=== PATIENT | male | born 1930 | race Caucasian/White ===

== ENCOUNTER → 2016-05-14 | Outpatient (CLI) | payer MEDICARE, OTHER ==
[~2016-05-14] MED LIST: ALFU10TA2 PO; ASPI81 PO; ASPI81CH7 CHEW; COQ1200C PO; CREO3000 PO; DIAB1.25 PO; DOCU100C PO; FERR1TAB58 PO; FINA5TAB2 PO; FISH1000 PO; FISHCAP4 PO; FURO20TA PO; GLUCTAB PO; ISOS30TA3 PO; LANTUS2P SQ; METATAB; METF1000 PO; METO25TA3 PO; NOVORP2 SQ; PERC7.5T3 PO; PRIN5TAB PO; PROS5TAB2 PO; RANI150 PO; RANI300T PO; SIMV20 PO; SIMV20TA PO; TAB-TAB PO; TERA5CAP34 PO; VITA10003 PO
[2016-05-14 09:51] LABS: ALKALINE PHOSPHATASE 96 U/L (45-117); ALT (GPT) 23 U/L (12-78); ANION GAP 9 MEQ/L (5-15); AST (GOT) 20 U/L (15-37); BICARBONATE 36.8 MEQ/L (21.0-32.0); BLOOD UREA NITROGEN 27 MG/DL (7-18); CHLORIDE 92 MEQ/L (98-107); GLOMERULAR FILTRATION RATE 63 ML/MIN (>89); GLUCOSE,FASTING 201 MG/DL (74-99); HDL CHOLESTEROL 55.3 MG/DL (40.0-60.0); LDL CHOLESTEROL 43 MG/DL (0-99); POTASSIUM 3.4 MEQ/L (3.5-5.1); SODIUM (NA) 138 MEQ/L (136-145); TOTAL BILIRUBIN ADULT 0.9 MG/DL (0.2-1.0)
== END ==
LOC: PLAB 07:39
PROVIDERS: ATTEND Internal Medicine Interventional Cardiology
DX: I25.10 Atherosclerotic heart disease of native coronary artery without angina pectoris (principal); R06.09 Other forms of dyspnea; R60.0 Localized edema; I10 Essential (primary) hypertension; I05.9 Rheumatic mitral valve disease, unspecified; E78.2 Mixed hyperlipidemia; I47.1 Supraventricular tachycardia; I45.89 Other specified conduction disorders; I38 Endocarditis, valve unspecified; I49.3 Ventricular premature depolarization; Z68.26 Body mass index [BMI] 26.0-26.9, adult
CPT/HCPCS: 36415; 80053; 80061; 83880; 84439; 84443; 85379

== ENCOUNTER → 2016-08-02 | Outpatient (CLI) | payer MEDICARE, OTHER ==
[2016-08-02 15:57] LABS: POTASSIUM 4.1 MEQ/L (3.5-5.1)
== END ==
LOC: PLAB 12:08
PROVIDERS: ATTEND Internal Medicine Interventional Cardiology
DX: I25.10 Atherosclerotic heart disease of native coronary artery without angina pectoris (principal); R06.09 Other forms of dyspnea; R60.0 Localized edema; I10 Essential (primary) hypertension; I05.9 Rheumatic mitral valve disease, unspecified; E78.2 Mixed hyperlipidemia; I47.1 Supraventricular tachycardia; I45.89 Other specified conduction disorders; I38 Endocarditis, valve unspecified; I49.3 Ventricular premature depolarization
CPT/HCPCS: 36415; 82565; 84132; 84295; 84520

== ENCOUNTER → 2016-08-26 | Outpatient (CLI) | payer MEDICARE, OTHER | LOC: PLAB 08:41 | PROVIDERS: ATTEND Family Medicine | DX: R79.89 Other specified abnormal findings of blood chemistry (principal) | CPT/HCPCS: 36415; 85379 ==

== ENCOUNTER 2016-09-23 01:51 | Inpatient (IN) | payer MEDICARE, OTHER ==
[~2016-09-23] VITALS: Ht 170.2 cm; Wt 79.9 kg
[2016-09-23] VITALS (16 sets, daily range): BP systolic 113–186; BP diastolic 63–86; PULSE 52–74; RESP 16–19; TEMP 96.7–98.1; O2SAT 88–97
[~2016-09-23 01:51] MED LIST changes: -ALFU10TA2 PO; -ASPI81CH7 CHEW; -COQ1200C PO; -CREO3000 PO; -DOCU100C PO; -FERR1TAB58 PO; -FINA5TAB2 PO; -FISH1000 PO; -FURO20TA PO; -ISOS30TA3 PO; -LANTUS2P SQ; -METF1000 PO; -METO25TA3 PO; -NOVORP2 SQ; -RANI300T PO; -SIMV20TA PO; -VITA10003 PO
--- NOTE | 2016-09-23 01:58 | PD ---
HPI Chief Complaint: Abd pain Time Seen by Provider: 02:10 Travel History International Travel<30 days: No Contact w/Intl Traveler<30days: No History of Present Illness HPI 86-year-old male arrives to the ER complaining of about 6 hours of epigastric abdominal pain. He felt nausea and the urge to vomit however did not. He reports passing trace flatus. Symptoms began after he ate tilapia, [facility]ashed [facility] Symptoms have been constant. He states severity is 7/10. There is a pressure-like quality. He took Gavascon which did not help. His had a different meal tonight. No fever. PFSH Past Medical History Arthritis: Yes Heart Rhythm Problems: Yes (PVC'S) Cancer: No Cardiac Catheterization: Yes () Cardiovascular Problems: No High Cholesterol: Yes Diabetes: Yes Diminished Hearing: No Diverticulitis: Yes Endocrine: No GERD: Yes Gout: Yes Genitourinary: Yes Hiatal Hernia: Yes Herniated Disk: Yes (RECENT DIAGNOSIS (STS POSSIBLE) ) Hypertension: Yes Inguinal Hernia: Yes Musculoskeletal: Yes Neurologic: Yes (BELLS PALSY) Psychiatric: No Reproductive: Yes (BPH) Respiratory: No Pneumonia: Yes Triglycerides - High: Yes Past Surgical History Abdominal Surgery: Yes (HERNIA REPAIR 1997) Joint Replacement: Yes (LEFT GREAT TOE JOINT) Tonsillectomy: Yes Other Surgery: Yes (INGUINAL HERNIA L AND R REPAIR) Social History Alcohol Use: Yes (RARELY) Tobacco Use: No (QUIT AGE 44) Substance Use: No Allergies-Medications (Allergen,Severity, Reaction): Coded Allergies: Penicillin (Verified Allergy, Intermediate, 01/22/13) HIVES Uncoded Allergies: MYCINS (Adverse Reaction, Mild, 01/22/13) PT STS NOT ALLERGIC TO MYCINS, STS HE HAD A Z ANDREA RECENTLY AND HAD NO REACTION Reported Meds & Prescriptions Reported Meds & Active Scripts Active Reported Lantus Inj (Insulin Glargine) 1,000 Unit/10 Ml Vial 20 Units SQ AC BREAKFAST Novolin R Inj (Insulin Human Regular) 1,000 Unit/10 Ml Vial 4-6 Units SQ TIDAC IMPORTANT TO EAT A MEAL WITHIN 30-60 MINUTES OF DOSING Creon (Pancrelipase) 3,000-9,500-15,000 Units Cap 1 Cap PO TIDPC Finasteride 5 Mg Tab 5 Mg PO DAILY Do not crush. Docusate Sodium 100 Mg Cap 100 Mg PO BID Alfuzosin ER 24 HR 10 Mg Tab 10 Mg PO DAILY Fish Oil ([place]-3 Fatty Acids) 1,000 Mg Cap 1 Cap PO DAILY Iron (Ferrous Sulfate) 50 Mg Tab 50 Mg PO DAILY Vitamin D-3 (Cholecalciferol) 1,000 Unit Tab 1,000 Units PO DAILY Simvastatin 20 Mg Tab 20 Mg PO DAILY Furosemide 20 Mg Tab 10 Mg PO DAILY Isosorbide Mononitrate ER (Isosorbide Mononitrate) 30 Mg Mary 30 Mg PO DAILY Metoprolol Tartrate 25 Mg Tab 12.5 Mg PO BID Ranitidine (Ranitidine HCl) 300 Mg Tab 300 Mg PO BID Coq10 (Coenzyme Q10 (Ubidecarenone)) 200 Mg Cap 1 Cap PO DAILY Aspirin Children's (Aspirin) 81 Mg Chew 81 Mg CHEW DAILY Metformin (Metformin HCl) 1,000 Mg Tab 1,000 Mg PO BIDPC With meals Review of Systems Except as stated in HPI: all other systems reviewed are Neg General / Constitutional: No: Fever Gastrointestinal: Positive: Abdominal Pain Physical Exam Narrative GENERAL: 86-year-old male pleasant well-nourished well-developed SKIN: Focused skin assessment warm/dry. HEAD: Atraumatic. Normocephalic. EYES: Pupils equal and round. No scleral icterus. No injection or drainage. ENT: No nasal bleeding or discharge. Mucous membranes pink and moist. NECK: Trachea midline. No JVD. CARDIOVASCULAR: Regular rate and rhythm. No murmur appreciated. RESPIRATORY: No accessory muscle use. Clear to auscultation. Breath sounds equal bilaterally. GASTROINTESTINAL: Tenderness to palpation epigastrium. Abdomen soft otherwise. MUSCULOSKELETAL: No obvious deformities. No clubbing. No cyanosis. No edema. NEUROLOGICAL: Awake and alert. No obvious cranial nerve deficits. Motor grossly within normal limits. Normal speech. PSYCHIATRIC: Appropriate mood and affect; insight and judgment normal. Data Data Last Documented VS Vital Signs Date Time Temp Pulse Resp B/P Pulse Ox O2 Delivery O2 Flow Rate FiO2 09/23/16 05:05 64 16 159/73 97 Nasal Cannula 2 09/23/16 01:59 98.1 Vital signs reviewed Orders Complete Blood Count With Diff (09/23/16 02:10) Comprehensive Metabolic Panel (09/23/16 02:10) Lipase (09/23/16 02:10) Lactic Acid (09/23/16 02:10) Ct Abd/Pel W Iv Contrast(Rout) (09/23/16 02:10) Iv Access Insert/Monitor (09/23/16 02:10) Ecg Monitoring (09/23/16 02:10) Oximetry (09/23/16 02:10) Ondansetron Inj (Zofran Inj) (09/23/16 02:15) Sodium Chloride 0.9% Flush (Ns Flush) (09/23/16 02:15) Dicyclomine Inj (Bentyl Inj) (09/23/16 02:15) Morphine Inj (Morphine Inj) (09/23/16 02:15) Al-Mag Hy-Si 40-40-4 Mg/Ml Liq (Mag-Al P (09/23/16 02:15) Lidocaine 2% Viscous (Xylocaine 2% Visco (09/23/16 02:15) Oral Contrast - Adult (09/23/16 02:14) Diatrizoate Liq ( Gastroview Liq) (09/23/16 02:57) Sodium Chlorid 0.9% 500 Ml Inj (Ns 500 M (09/23/16 03:30) Iohexol 350 Inj (Omnipaque 350 Inj) (09/23/16 04:16) Admit Order (Ed Use Only) (09/23/16 06:03) Labs Laboratory Tests Test 09/23/16 02:20 White Blood Count 14.6 TH/MM3 Red Blood Count 4.38 MIL/MM3 Hemoglobin 12.7 GM/DL Hematocrit 39.2 % Mean Corpuscular Volume 89.3 FL Mean Corpuscular Hemoglobin 29.0 PG Mean Corpuscular Hemoglobin 32.4 % Concent Red Cell Distribution Width 15.4 % Platelet Count 268 TH/MM3 Mean Platelet Volume 9.2 FL Neutrophils (%) (Auto) 81.0 % Lymphocytes (%) (Auto) 12.2 % Monocytes (%) (Auto) 6.0 % Eosinophils (%) (Auto) 0.3 % Basophils (%) (Auto) 0.5 % Neutrophils # (Auto) 11.9 TH/MM3 Lymphocytes # (Auto) 1.8 TH/MM3 Monocytes # (Auto) 0.9 TH/MM3 Eosinophils # (Auto) 0.0 TH/MM3 Basophils # (Auto) 0.1 TH/MM3 CBC Comment DIFF FINAL Differential Comment Sodium Level 138 MEQ/L Potassium Level 3.9 MEQ/L Chloride Level 100 MEQ/L Carbon Dioxide Level 31.5 MEQ/L Anion Gap 7 MEQ/L Blood Urea Nitrogen 26 MG/DL Creatinine 1.10 MG/DL Estimat Glomerular Filtration 63 ML/MIN Rate Random Glucose 275 MG/DL Lactic Acid Level 1.9 mmol/L Calcium Level 8.8 MG/DL Total Bilirubin 0.3 MG/DL Aspartate Amino Transf 17 U/L (AST/SGOT) Alanine Aminotransferase 20 U/L (ALT/SGPT) Alkaline Phosphatase 80 U/L Total Protein 7.1 GM/DL Albumin 3.5 GM/DL Lipase 664 U/L [facility] Medical Decision Making Medical Screen Exam Complete: Yes Emergency Medical Condition: Yes Medical Record Reviewed: Yes Differential Diagnosis Constipation, Gastritis, Acute Cholecystitis, Biliary Colic, Pancreatitis, FUENTES , Hepatitis, Bowel Obstruction, Cystitis, Mesenteric Ischemia, AAA, Appendicitis , Renal Stone/Hydronephrosis, GERD, perforated viscous Narrative Course CBC & BMP Diagram 09/23/16 02:20 Lactic acid 1.9 LFTs normal Lipase 664 0520: pt resting comfortably, subjective improvement reported, minimal TTP epigastrium, soft Last 24 hours Impressions Abdomen/Pelvis CT 09/23/16 0210 Signed Impressions: Service Date/Time: , September 23, 2016 04:07 - CONCLUSION: 1. New large complex low attenuation mass in the right upper abdomen. The differential diagnosis includes pancreatic carcinoma. A GI tumor could potentially have this appearance. Endoscopy may be helpful for further evaluation. 2. 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 3. Bilateral renal cysts. Stevenson Regan MD Pt to be admitted for management of pancreatitis and for endoscopic evaluation of mass in right upper abdomen. Three weeks, subsequently reported by the patient as one month, prior pt was evaluated by an oncologist, Dr Nik Shipley. Results of the evaluation performed at that time were reported to the patient and as a "Clean bill of health" and, it is reported to me by the , the evaluation included imaging of the abdomen/pelvis. Both patient and are perplexed with results of today's work up being in apparent contradiction with those of the oncologist' s. Both request the oncologist assessment be obtained most expeditiously upon his office's opening hour at 09:00 and have signed consent forms already. Case was discussed w Wander Farfan. Admit to Dr Pelaez. A consultation to GI has been placed. Pt has requested a medication for his reflux symptoms noted at 610AM and protonix was ordered. Diagnosis Primary Impression: Pancreatitis Qualified Code: K85.90 - Acute pancreatitis, unspecified complication status, unspecified pancreatitis type Additional Impression: Mass of abdomen Qualified Code: R19.06 - Epigastric mass Admitting Information Admitting Physician Requests: Rashaun Hankins MD September 23, 2016 01:58
[2016-09-23] MEDS ORDERED: DICYCLOMINE HCL 20 MG/2 ML VIAL IM ONE (02:15)
[2016-09-23] MEDS ORDERED: LIDOCAINE VISCOUS 2% SOLN 15 ML UDC PO ONE (02:15)
[2016-09-23] MEDS ORDERED: MORPHINE SULFATE 8 MG/ML INJ IV PUSH ONE (02:15)
[2016-09-23] MEDS ORDERED: ALUMINUM/MAGNESIUM/SIMETH 30 ML CUP PO ONE (02:15)
[2016-09-23] MEDS ORDERED: ONDANSETRON HCL 4 MG/2 ML VIAL IVP ONE (02:15)
[2016-09-23 02:31] LABS: AUTOMATED NEUTROPHIL # 11.9 TH/MM3 (1.8-7.7); BASOPHIL # 0.1 TH/MM3 (0-0.2); BASOPHIL % 0.5 % (0.0-2.0); EOSINOPHIL % 0.3 % (0.0-4.0); HEMATOCRIT 39.2 % (39.0-51.0); HEMO FLAGS DIFF FINAL; LYMPH % 12.2 % (9.0-44.0); LYMPHOCYTE # 1.8 TH/MM3 (1.0-4.8); MEAN CELL VOLUME 89.3 FL (80.0-100.0); MEAN CORPUSCULAR HGB CONC 32.4 % (32.0-36.0); PLATELET COUNT 268 TH/MM3 (150-450); RED BLOOD COUNT 4.38 MIL/MM3 (4.50-5.90); RED CELL DISTRIBUTION WIDTH 15.4 % (11.6-17.2); WHITE BLOOD COUNT 14.6 TH/MM3 (4.0-11.0)
[2016-09-23 02:37] LABS: CHLORIDE 100 MEQ/L (98-107); POTASSIUM 3.9 MEQ/L (3.5-5.1); SODIUM (NA) 138 MEQ/L (136-145)
[2016-09-23] MEDS: SODIUM CHLORIDE 0.9% FLUSH 10 ML FLUSH IV FLUSH PRN ×2 (02:38→06:22)
[2016-09-23 02:41] LABS: ANION GAP 7 MEQ/L (5-15); BICARBONATE 31.5 MEQ/L (21.0-32.0); BLOOD UREA NITROGEN 26 MG/DL (7-18)
[2016-09-23 02:44] LABS: ALT (GPT) 20 U/L (12-78); AST (GOT) 17 U/L (15-37); GLOMERULAR FILTRATION RATE 63 ML/MIN (>89)
[2016-09-23 02:45] LABS: TOTAL BILIRUBIN ADULT 0.3 MG/DL (0.2-1.0)
[2016-09-23 02:47] LABS: ALKALINE PHOSPHATASE 80 U/L (45-117)
[2016-09-23] MEDS ORDERED: DIATRIZOATE MEGLUM/DIATRIZOATE SOD 9 ML CUP ONE (02:57)
[2016-09-23] MEDS ORDERED: METF1000 PO (03:26)
[2016-09-23] MEDS ORDERED: SIMV20TA PO (03:26)
[2016-09-23] MEDS ORDERED: ALFU10TA2 PO (03:26)
[2016-09-23] MEDS ORDERED: FURO20TA PO (03:26)
[2016-09-23] MEDS ORDERED: FINA5TAB2 PO (03:26)
[2016-09-23] MEDS ORDERED: RANI300T PO (03:26)
[2016-09-23] MEDS ORDERED: ASPI81CH7 CHEW (03:26)
[2016-09-23] MEDS ORDERED: FERR1TAB58 PO (03:26)
[2016-09-23] MEDS ORDERED: METO25TA3 PO (03:26)
[2016-09-23] MEDS ORDERED: VITA10003 PO (03:26)
[2016-09-23] MEDS ORDERED: DOCU100C PO (03:26)
[2016-09-23] MEDS ORDERED: ISOS30TA3 PO (03:26)
[2016-09-23] MEDS ORDERED: FISH1000 PO (03:26)
[2016-09-23] MEDS ORDERED: COQ1200C PO (03:26)
[2016-09-23] MEDS ORDERED: CREO3000 PO (03:29)
[2016-09-23] MEDS ORDERED: LANTUS2P SQ (03:29)
[2016-09-23] MEDS ORDERED: NOVORP2 SQ (03:29)
[2016-09-23] MEDS ORDERED: SODIUM CHLORID 0.9% 500 ML INJ 500 ML IV ONE (03:30)
[2016-09-23] MEDS ORDERED: IOHEXOL 350 MG/ML 10 ML VIAL (for RAD DIAG) IV ONE (04:16)
--- NOTE | 2016-09-23 05:31 | RADHPO ---
EXAM DATE/TIME: 09/23/2016 04:07 [place] COMPARISON: CT ABDOMEN & PELVIS W CONTRAST, November 02, 2011, 20:37. INDICATIONS : Abdominal pain and reflux following a meal. History of abnormal pancreas with cystic structure seen o n prior CT. IV CONTRAST: 100 cc Omnipaque 350 (iohexol) IV ORAL CONTRAST: Prescribed oral contrast ingested. RADIATION DOSE: 16.27 CTDIvol (mGy) MEDICAL HISTORY : Hernia, hiatal. Hernia, inguinal. Diverticulitis. BPH. Diabetes. Hypertension. SURGICAL HISTORY : Inguinal hernia repair. ENCOUNTER: Initial ACUITY: 1 day PAIN SCALE: 5/10 LOCATION: abdomen TECHNIQUE: Volumetric scanning of the abdomen and pelvis was performed. Using automated exposure control and ad justment of the mA and/or kV according to patient size, radiation dose was kept as low as reasonably achievable to obtain optimal diagnostic quality images. FINDINGS: LOWER LUNGS: The visualized lower lungs are clear except for mild scarring. LIVER: Homogeneous density without lesion. There is no dilation of the biliary tree. No calcified gallston es. SPLEEN: Normal size without lesion. PANCREAS: Multiple stable benign appearing cystic structures are again noted in the pancreas. There is a new la rge low attenuation mass noted along the posterior antrum of the stomach and left side of the duodenu m measuring up to 3.8 x 3.7 cm in diameter. The mass is also contiguous with the upper pancreatic hea d. There is a central low attenuation rounded mass like area with apparent faint thin rim surrounded by a second area of low attenuation. Centrally this measures approximately 45 Hounsfield units in den sity and appears to displace and narrow the distal stomach and duodenum. KIDNEYS: Normal in size and shape. There is no solid mass, stone or hydronephrosis. There are bilateral simpl e cysts again noted. ADRENAL GLANDS: Within normal limits. VASCULAR: There is no aortic aneurysm. BOWEL/MESENTERY: The stomach, small bowel, and colon demonstrate no other acute abnormality. There is no free intrape ritoneal air or fluid. Scattered diverticuli are present. ABDOMINAL WALL: Within normal limits. RETROPERITONEUM: There is no lymphadenopathy. BLADDER: No wall thickening or mass. REPRODUCTIVE: Within normal limits. INGUINAL: There is no lymphadenopathy or hernia. MUSCULOSKELETAL: Within normal limits for patient age. CONCLUSION: 1. New large complex low attenuation mass in the right upper abdomen. The differential diagnosis incl udes pancreatic carcinoma. A GI tumor could potentially have this appearance. Endoscopy may be helpfu l for further evaluation. 2. 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 3. Bilateral renal cysts. Stevenson Regan MD on September 23, 2016 at 5:21 Board Certified Radiologist. This report was verified electronically.
[2016-09-23] MEDS ORDERED: PANTOPRAZOLE SODIUM 40 MG VIAL IVP ONE (06:15)
[2016-09-23] MEDS ORDERED: ONDANSETRON HCL 4 MG/2 ML VIAL IV PRN (07:15)
[2016-09-23] MEDS ORDERED: SODIUM CHLORIDE 0.9% FLUSH 10 ML FLUSH IV FLUSH PRN (07:15)
[2016-09-23] MEDS ORDERED: MORPHINE SULFATE 8 MG/ML INJ IV PUSH PRN (07:15)
[2016-09-23] MEDS ORDERED: FINASTERIDE 5 MG TAB PO SCH ×2 (09:00→21:00)
[2016-09-23] MEDS ORDERED: NON-FORMULARY DRUG (Coenzyme Q10 (Ubidecarenone) (Coq10) 1 CAP) PO SCH (09:00)
[2016-09-23] MEDS ORDERED: TAMSULOSIN HCL 0.4 MG CAP PO SCH ×2 (09:00→21:00)
[2016-09-23] MEDS ORDERED: PRAVASTATIN SOD 40 MG TAB PO SCH ×2 (09:00→21:00)
[2016-09-23] MEDS ORDERED: NON-FORMULARY DRUG (Omega-3 Fatty Acids (Fish Oil) 1 CAP) PO SCH (09:00)
[2016-09-23] MEDS ORDERED: PILL SPLITTER OTHER PRN (09:00)
[2016-09-23] MEDS: METFORMIN HOLD POST IV CONTRAST SCH (09:00)
[2016-09-23] MEDS: SODIUM CHLOR 0.9% 1000 ML INJ 1,000 ML IV SCH ×3 (09:01→23:07)
[2016-09-23] MEDS: HEPARIN SODIUM - SQ 10,000 UNITS/ML VIAL SQ SCH ×2 (09:01→21:51)
[2016-09-23] MEDS: SODIUM CHLORIDE 0.9% FLUSH 10 ML FLUSH IV FLUSH SCH ×2 (09:01→21:48)
--- NOTE | 2016-09-23 09:18 | MH ---
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 He reports passing flatus. His symptoms began after he ate Tilapia, mashed potatoes and salad bar at [facility] [employer]. The symptoms have been constant. He states this is about 10. There is a pressure-like quality. He took Gaviscon which did not help. His had a different meal last night. He denies any fever or chills. Denies any blood in the stool. Denies any black stool. Denies any chest pain or shortness of breath. Denies any cough, congestion, bronchitis symptoms. He denies any urinary tract infection symptoms. Other than that, nothing significant. PAST MEDICAL AND SURGICAL HISTORY As dictated above. SOCIAL HISTORY He quit smoking at age 44. He rarely drinks. Denies any drug abuse. Lives at home with his . He is retired from retail used equipment sales representative. FAMILY HISTORY Significant for a brother who of bladder cancer and another brother of esophageal cancer. ALLERGIES PENICILLIN CAUSES HIVES, MYCIN. MEDICATIONS Include: 1. Lantus 20 units subcutaneous a.c/breakfast 2. Novolin R according to sliding scale 3. Colace 100 mg p.o. daily 4. Creon 3000/9500/15,000 units capsule p.o. t.i.d. 5. Finasteride 5 mg p.o. daily 6. Alfuzosin ER 24 mg 12 mg daily 7. Fish oil one capsule daily 8. Iron 50 mg p.o. daily 9. Vitamin D3 1000 units p.o. daily 10. Simvastatin 20 mg p.o. daily 11. Furosemide 20 mg p.o. daily 12. Isosorbide mononitrate 30 mg p.o. daily 13. Metoprolol tartrate 25 mg 1/2 tablet twice a day 14. Ranitidine 300 mg twice a day 15. CO-Q10 200 mg p.o. daily 16. Aspirin 81 mg p.o. daily 17. Metformin 1000 mg twice a day REVIEW OF SYSTEMS Positive for abdominal pain, nausea feeling weak and tired. All other review of systems are negative. PHYSICAL EXAMINATION This is an 86-year-old male sitting on the bed not in acute distress. VITAL SIGNS: Temperature 98.1, heart rate is 61, respirations 16, blood pressure 131/63, O2 saturation 98% two liters nasal cannula. HEENT: Normocephalic, atraumatic. EOMI. PERRL. Oral mucosa moist. NECK: Supple. No visible thyromegaly or neck mass. Trachea central. CARDIOVASCULAR: Regular rate and rhythm. Respirations clear to auscultation bilaterally. ABDOMEN: Soft, tender at the epigastric area. Deep palpation not done. Bowel sounds audible. EXTREMITIES: No cyanosis or clubbing. Full range of motion of all extremities. NEUROLOGIC: Awake, alert, and oriented x4. Has a right-sided Engel's palsy. PSYCH: The patient is cooperative. Mood and affect is normal. LABORATORY DATA Include CBC showed WBC count 14.6 high, hemoglobin 12.7 low, hematocrit 39.2 normal. Neutrophil percentage 81.0 high. BMP totally unremarkable except for BUN 26 high, GFR 63 low, blood glucose random 275, lipase 664. CT abdomen and pelvis was done shows new large complex low attenuation mass in the right upper abdomen. The differential diagnosis included pancreatic carcinoma. A GI tumor could potentially have this appearance. Funduscopy may be helpful for further evaluation. Multiple low-attenuation cystic structure again noted in the spleen which appear fairly stable, bilateral renal cysts. ASSESSMENT/PLAN 1. This is an 86-year male who came to the ER diagnosed with abdominal pain most likely secondary to a cancer mass. The patient also high lipase. The patient is on Morphine for pain. GI consulted. I will consult oncology. Further recommendation per sales enablement consultant. 2. Diabetes mellitus. The patient started on a clear liquid diet. NovoLog low-dose sliding scale. Check blood sugar and H&H. 3. History of coronary artery disease. Continue home medication. 4. History of hyperlipidemia. Continue home medication. 5. History of vitamin D deficiency. Continue home medications. 6. Iron deficiency. Continue with iron supplement. 7. Constipation. Continue the home medication. 8. Nausea and vomiting. The patient is on Zofran. 9. DVT prophylaxis, heparin 5000 units subcutaneous twice a day. 10. GI prophylaxis Protonix 40 mg p.o. daily. 11. We are going to manage the patient on a daily basis and make recommendations on a daily basis. Sandip Tan MD EA/ZAHIDA /8:36 AM /8:49 AM
[2016-09-23] MEDS ORDERED: [UNRECOGNIZED DRUG - OTHER] PO SCH (09:30)
[2016-09-23] MEDS: CHOLECALCIFEROL (VIT D3) 1000 UNIT TAB PO SCH (11:24)
[2016-09-23] MEDS: FUROSEMIDE 20 MG TAB PO SCH (11:24)
[2016-09-23] MEDS: FAMOTIDINE 20 MG TAB PO SCH ×2 (11:24→21:49)
[2016-09-23] MEDS: METOPROLOL TARTRATE 25 MG TAB PO SCH ×2 (11:25→21:50)
[2016-09-23] MEDS: DOCUSATE SODIUM 100 MG CAP PO SCH ×2 (11:25→21:50)
[2016-09-23] MEDS: ASPIRIN 81 MG CHEW TAB CHEW SCH (11:25)
[2016-09-23] MEDS: FERROUS SULFATE 325 MG (65 MG ELEMENTAL IRON) TAB PO SCH (11:26)
[2016-09-23] MEDS: ISOSORBIDE MONONITRATE 30 MG TAB PO SCH (11:41)
--- NOTE | 2016-09-23 19:46 | MB ---
cc: FAIZAN CRONIN MD DATE OF CONSULTATION 09/23/[address] Pelaez REASON FOR CONSULTATION Oncology consulted to render opinion regarding patient with pancreatic cancer who presented with abdominal pain and pancreatic mass. 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 She went to [facility] and had distal pancreatectomy with splenectomy in December of 2015. He has been followed by Dr. Shipley. He just completed adjuvant chemotherapy around August of this year. He was doing well. He went to eat at a restaurant yesterday. After that, he developed bloating and pressure sensation in mid epigastrium, more towards the left side. He was nauseated, but he could not throw up. He was very uncomfortable and came to the hospital. CT abdomen and pelvis done showed a new large complex low attenuation mass in the right upper quadrant worrisome for recurrent disease. When I saw him today, he is feeling better. He is no longer nauseated. He denies any abdominal pain. Denies any fever or chills. Denies any chest pressure, palpitations, any shortness of breath or cough. PAST MEDICAL HISTORY 1. Pancreatic cancer. 2. Coronary disease 3. Diabetes mellitus, 4. Hyperlipidemia. 5. Diverticulitis. 6. Gastroesophageal reflux disease. 7. Gout 8. Hiatal hernia 9. Engel's palsy 10. Hypertension. 11. Inguinal hernia 12. Benign prostatic hypertrophy. PAST SURGICAL HISTORY 1. Distal pancreatectomy and splenectomy. 2. Cardiac cath 3. Hernia repair 4. Left toe surgery. 5. Tonsillectomy. FAMILY HISTORY Noncontributory. SOCIAL HISTORY Quit tobacco age 44, has occasional alcohol. ALLERGIES MYCIN PENICILLIN MEDICATIONS Current, 1. Flomax. 2. Proscar. 3. Pravachol. 4. Heparin. 5. Aspirin. 6. Colace. 7. Lasix 8. Imdur 9. Metoprolol 10. Vitamin D3. 11. Ferrous sulfate. 12. Famotidine. REVIEW OF SYSTEMS CONSTITUTIONAL: Denies any fever or chills, night sweat, weight loss. EYES: Denies any blurred vision, double vision. ENT: Denies mouth sores or voice changes. CARDIOVASCULAR: Denies chest pressure, palpitation RESPIRATORY: Denies any shortness of breath or cough. GI: As above. : Denies dysuria, hematuria. MUSCULOSKELETAL: Denies any bone pain, muscle pain HEMATOLOGIC: Negative. ENDOCRINE: Negative DERMATOLOGY: Negative PSYCHIATRIC: Negative. NEUROLOGIC: Negative. PHYSICAL EXAMINATION VITAL SIGNS: Temperature 97.3, blood pressure 115/65, O2 saturation 95% room air. GENERAL: He is alert and oriented x3 in no acute distress. HEENT: Atraumatic, normocephalic. Pupils equal, round and reactive to light. Extraocular movements are intact. No scleral icterus. Oropharynx dry mucosa. No lesion, no thrush. NECK: No thyromegaly. No palpable masses. LYMPHATICS: No palpable cervical, clavicular, axillary or inguinal lymph node CARDIOVASCULAR: Regular S1-S2. No murmur. LUNGS: Clear to auscultation without wheezing or rhonchi. ABDOMEN: Soft. A little pressure in the mid epigastric area but no significant pain. No rebound or rigidity. Positive bowel sounds. EXTREMITIES: No cyanosis, clubbing or edema, no calf tenderness. BACK: No paravertebral tenderness. SKIN: No rash or petechiae. NEUROLOGIC: Nonfocal. LABORATORY DATA Reviewed ASSESSMENT 1. Right upper quadrant mass. He has history of pancreatic cancer status post distal pancreatectomy with splenectomy December 2015. This was done at [facility]. He has been seeing Dr. Shipley and just completed adjuvant chemotherapy around August of this year. He presented with nausea and abdominal pain after eating in a restaurant, onset was quite acute. CT abdomen and pelvis showed a 3.8 x 3.7 cm low-attenuation mass along the posterior antrum of the stomach and the left side of the duodenum. The mass is contiguous with upper pancreatic head. The patient told me he just had an MRI done recently. I reviewed his radiologic studies done at [facility]. I reviewed his MRI and CT scan. He had a CT scan in May 2016 which also noted a similar mass in the same location. MRI August 30 showed 3.3 cm smooth margin cystic lesion upper abdomen between the antrum of the stomach, portal vein, second portion duodenum. This lesion appeared to be stable. 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 I would recommend having the radiologist review his scan and compare it to his previous scan done at outpatient clinic to see if there are any changes. If not, the patient can continue to follow up with Dr. Shipley after discharge. 2. Coronary artery disease. He has no symptoms. 3. Hypertension, stable. 4. Benign prostatic hypertrophy, stable. RECOMMENDATIONS 1. I have reviewed patient his radiologic studies and the abdominal mass appeared to be stable and I think it is a pseudocyst. I recommend having the radiologist compare his current CT scan with his previous CT from May to see if there are any changes. If it is stable, the patient can continue follow up with Dr. Shipley. 2. Check a tumor marker Thank you, Dr. Pelaez, for asking me to see this patient. MD JAMES Trevino/ /6:07 PM /7:20 PM MTDHector
--- NOTE | 2016-09-23 20:41 | PD.CONS ---
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 Shipley and he finished that about a month ago he was at a restaurant yesterday when he experienced the sudden onset of abdominal pain he felt nauseated but he did not vomit on admission through the ER he was noted to have a mass possibly at the level of the head of the pancreas but according to the patient he had a recent MRI with Dr. Shipley and the results are showing that he had the beginnings of a cyst in the head of the pancreas this was dated September 02 patient was also noted to have elevated lipase suggesting that he may have pancreatitis and that this could be a pancreatic pseudocyst regardless at this point the patient is lying comfortable in bed back to his baseline tolerating liquid intake no nausea or vomiting no diarrhea or constipation no fever or chills following his surgery the patient has maintained his appetite and weight PFSH Past Medical History 1. Pancreatic cancer. 2. Coronary disease 3. Diabetes mellitus, 4. Hyperlipidemia. 5. Diverticulitis. 6. Gastroesophageal reflux disease. 7. Gout 8. Hiatal hernia 9. Engel's palsy 10. Hypertension. 11. Inguinal hernia 12. Benign prostatic hypertrophy. Past Surgical History 1. Distal pancreatectomy and splenectomy. 2. Cardiac cath 3. Hernia repair 4. Left toe surgery. 5. Tonsillectomy. Coded Allergies: Penicillin (Verified Allergy, Intermediate, 01/22/13) HIVES Uncoded Allergies: MYCINS (Adverse Reaction, Mild, 01/22/13) PT STS NOT ALLERGIC TO MYCINS, STS HE HAD A Z ANDREA RECENTLY AND HAD NO REACTION Medications 1. Flomax. 2. Proscar. 3. Pravachol. 4. Heparin. 5. Aspirin. 6. Colace. 7. Lasix 8. Imdur 9. Metoprolol 10. Vitamin D3. 11. Ferrous sulfate. 12. Famotidine. Family History Noncontributory Social History No tobacco but occasional alcohol Review of Systems ROS Review of systems Patient denies any headache dizziness blurry vision, denies any chest pain shortness of breath cough fever chills, Denies any palpitations or fatigue denies any polyuria dysuria hematuria, denies any numbness tingling or weakness, denies any skin rash pruritus or jaundice, denies any easy bruising or bleeding tendency, denies any recent change in mood GI Exam Vitals I&O Vital Signs Date Time Temp Pulse Resp B/P Pulse Ox O2 Delivery O2 Flow Rate FiO2 09/23/16 18:13 97 Nasal Cannula 2.00 09/23/16 17:00 97.3 52 18 115/65 95 09/23/16 12:16 96.7 61 19 143/76 94 09/23/16 08:34 97.1 64 18 149/78 97 09/23/16 07:29 61 16 135/63 98 09/23/16 07:15 97 Nasal Cannula 2.00 09/23/16 05:05 64 16 159/73 97 Nasal Cannula 2 09/23/16 04:05 66 16 155/71 96 Nasal Cannula 2 09/23/16 03:43 18 96 Nasal Cannula 2 09/23/16 03:42 18 88 Room Air 09/23/16 03:05 74 18 178/86 94 Room Air 09/23/16 03:00 18 09/23/16 02:05 18 96 Room Air 09/23/16 02:05 63 18 186/84 97 Room Air 09/23/16 02:05 18 09/23/16 01:59 98.1 69 18 161/83 96 I/O 09/22/16 09/22/16 09/22/16 09/23/16 09/23/16 09/23/16 07:00 15:00 23:00 07:00 15:00 23:00 Intake Total 1100 ml 1007 ml Output Total 600 ml Balance 500 ml 1007 ml Intake Oral 600 ml 480 ml IV Total 500 ml 527 ml Output Urine Total 600 ml Imaging Last 48 hours Impressions Abdomen/Pelvis CT 09/23/16 0210 Signed Impressions: Service Date/Time: September 04:07 - CONCLUSION: 1. New large complex low attenuation mass in the right upper abdomen. The differential diagnosis includes pancreatic carcinoma. A GI tumor could potentially have this appearance. Endoscopy may be helpful for further evaluation. 2. 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 3. Bilateral renal cysts. Stevenson Regan MD Laboratory Test 09/23/16 09/23/16 02:20 10:05 White Blood Count 14.6 TH/MM3 Red Blood Count 4.38 MIL/MM3 Hemoglobin 12.7 GM/DL Hematocrit 39.2 % Mean Corpuscular Volume 89.3 FL Mean Corpuscular Hemoglobin 29.0 PG Mean Corpuscular Hemoglobin 32.4 % Concent Red Cell Distribution Width 15.4 % Platelet Count 268 TH/MM3 Mean Platelet Volume 9.2 FL Neutrophils (%) (Auto) 81.0 % Lymphocytes (%) (Auto) 12.2 % Monocytes (%) (Auto) 6.0 % Eosinophils (%) (Auto) 0.3 % Basophils (%) (Auto) 0.5 % Neutrophils # (Auto) 11.9 TH/MM3 Lymphocytes # (Auto) 1.8 TH/MM3 Monocytes # (Auto) 0.9 TH/MM3 Eosinophils # (Auto) 0.0 TH/MM3 Basophils # (Auto) 0.1 TH/MM3 CBC Comment DIFF FINAL Differential Comment Sodium Level 138 MEQ/L Potassium Level 3.9 MEQ/L Chloride Level 100 MEQ/L Carbon Dioxide Level 31.5 MEQ/L Anion Gap 7 MEQ/L Blood Urea Nitrogen 26 MG/DL Creatinine 1.10 MG/DL Estimat Glomerular Filtration 63 ML/MIN Rate Random Glucose 275 MG/DL Lactic Acid Level 1.9 mmol/L Calcium Level 8.8 MG/DL Total Bilirubin 0.3 MG/DL Aspartate Amino Transf 17 U/L (AST/SGOT) Alanine Aminotransferase 20 U/L (ALT/SGPT) Alkaline Phosphatase 80 U/L Total Protein 7.1 GM/DL Albumin 3.5 GM/DL Lipase 664 U/L 398 U/L Physical Examination HEENT: Pupils round and reactive to light; normocephalic; atraumatic; no jaundice. Throat is clear. NECK: Neck is supple, no JVD, no lymphadenopathy. CHEST: Chest is clear to auscultation and percussion. CARDIAC: Regular rate and rhythm with no murmur gallop or rubs. ABDOMEN: Soft, nondistended, nontender; no hepatosplenomegaly; bowel sounds are present in all four quadrants. EXTREMITIES: No clubbing, cyanosis, or edema. SKIN: Normal; no rash; no jaundice. 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 Assessment and Plan Plan Abdominal pain Elevated lipase suggesting pancreatitis Abnormal imaging of the head of the pancreas with probable cyst formation Known history of pancreatic cancer of the tail of the pancreas post surgical resection and chemotherapy At this point the patient is doing very well clinically and has no complaints He tells me he will be traveling to [place] in about a week We will need to discuss the results of the imaging studies with radiology and compare with prior x-rays but I would concur with Dr. 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
[2016-09-23 21:12] LABS: POTASSIUM 4.2 MEQ/L (3.5-5.1)
[2016-09-23 21:28] LABS: BICARBONATE 30.5 MEQ/L (21.0-32.0)
[2016-09-24] VITALS: BP 102/50; PULSE 48; RESP 19; TEMP 96.9; O2SAT 97
[2016-09-24] MEDS: METFORMIN HOLD POST IV CONTRAST SCH (04:15)
[2016-09-24] MEDS: ISOSORBIDE MONONITRATE 30 MG TAB PO SCH (06:36)
[2016-09-24 07:25] LABS: AUTOMATED NEUTROPHIL # 4.7 TH/MM3 (1.8-7.7); BASOPHIL # 0.1 TH/MM3 (0-0.2); BASOPHIL % 0.7 % (0.0-2.0); EOSINOPHIL # 0.6 TH/MM3 (0-0.4); EOSINOPHIL % 6.9 % (0.0-4.0); HEMATOCRIT 32.9 % (39.0-51.0); HEMO FLAGS DIFF FINAL; LYMPH % 30.7 % (9.0-44.0); LYMPHOCYTE # 2.8 TH/MM3 (1.0-4.8); MEAN CELL VOLUME 88.8 FL (80.0-100.0); MEAN CORPUSCULAR HGB CONC 32.6 % (32.0-36.0); MONO % 10.1 % (0.0-8.0); NEUT % 51.6 % (16.0-70.0); PLATELET COUNT 242 TH/MM3 (150-450); RED BLOOD COUNT 3.71 MIL/MM3 (4.50-5.90); RED CELL DISTRIBUTION WIDTH 15.6 % (11.6-17.2); WHITE BLOOD COUNT 9.1 TH/MM3 (4.0-11.0)
[2016-09-24 07:33] LABS: POTASSIUM 4.1 MEQ/L (3.5-5.1)
[2016-09-24 07:38] LABS: BICARBONATE 33.2 MEQ/L (21.0-32.0)
[2016-09-24 08:16] VITALS: BP 155/76; PULSE 52; RESP 18; TEMP 96.5; O2SAT 94
[2016-09-24 08:27] VITALS: O2SAT 94
--- NOTE | 2016-09-24 08:30 | HHI.PR ---
Subjective History of Present Illness Patient feel better no acute issue abdominal pain resolved. d/w oncology Dr Aki esquivel [place] per oncology have CT Finding most likely mass is Pseudocyst per oncology. CA19-9 is normal. Patient wants to go home...ok to [facility] today. Review of Systems Constitutional Constitutional: Fatigue, Weakness Vitals/Results Intake & Output 09/23/16 09/23/16 09/24/16 15:00 23:00 07:00 Intake Total 1247 ml 240 ml Output Total 250 ml 450 ml Balance 997 ml -210 ml Intake Oral 720 ml 240 ml IV Total 527 ml Output Urine Total 250 ml 450 ml # Bowel Movements 0 0 Vital Signs Vital Signs Date Time Temp Pulse Resp B/P Pulse Ox O2 Delivery O2 Flow Rate FiO2 09/24/16 08:27 94 Nasal Cannula 2.00 09/24/16 08:16 96.5 52 18 155/76 94 09/24/16 00:00 96.9 48 19 102/50 97 09/23/16 20:00 96.9 52 18 113/64 96 09/23/16 19:45 95 Nasal Cannula 2.00 09/23/16 18:13 97 Nasal Cannula 2.00 09/23/16 17:00 97.3 52 18 115/65 95 09/23/16 12:16 96.7 61 19 143/76 94 09/23/16 08:34 97.1 64 18 149/78 97 CBC/BMP: 09/24/16 0600 09/24/16 0600 Lab Results Laboratory Tests Test 09/23/16 09/23/16 09/23/16 09/24/16 10:05 18:35 20:55 06:00 Lipase 398 U/L 89 U/L Carcinoembryonic Antigen 3.2 NG/ML CA 19-9 Antigen 28.9 U/ML Sodium Level 139 MEQ/L 142 MEQ/L Potassium Level 4.2 MEQ/L 4.1 MEQ/L Chloride Level 103 MEQ/L 105 MEQ/L Carbon Dioxide Level 30.5 MEQ/L 33.2 MEQ/L Anion Gap 6 MEQ/L 4 MEQ/L Blood Urea Nitrogen 19 MG/DL 18 MG/DL Creatinine 0.93 MG/DL 0.85 MG/DL Estimat Glomerular Filtration 77 ML/MIN 85 ML/MIN Rate Random Glucose 254 MG/DL 154 MG/DL Calcium Level 8.0 MG/DL 8.3 MG/DL White Blood Count 9.1 TH/MM3 Red Blood Count 3.71 MIL/MM3 Hemoglobin 10.7 GM/DL Hematocrit 32.9 % Mean Corpuscular Volume 88.8 FL Mean Corpuscular Hemoglobin 29.0 PG Mean Corpuscular Hemoglobin 32.6 % Concent Red Cell Distribution Width 15.6 % Platelet Count 242 TH/MM3 Mean Platelet Volume 9.7 FL Neutrophils (%) (Auto) 51.6 % Lymphocytes (%) (Auto) 30.7 % Monocytes (%) (Auto) 10.1 % Eosinophils (%) (Auto) 6.9 % Basophils (%) (Auto) 0.7 % Neutrophils # (Auto) 4.7 TH/MM3 Lymphocytes # (Auto) 2.8 TH/MM3 Monocytes # (Auto) 0.9 TH/MM3 Eosinophils # (Auto) 0.6 TH/MM3 Basophils # (Auto) 0.1 TH/MM3 CBC Comment DIFF FINAL Differential Comment Physical Exam General General Appearance: Well Developed, Well Nourished, No Acute Distress, Comfortable Eyes Eye Exam: Pupils Equal, Pupils Reactive, Sclera White, Extraocular Movement Intact Throat Throat Exam: Oral Mucosa Rowan & Moist, Oral Pharynx Normal Neck Neck Exam: Neck Supple, Trachea Midline Pulmonary Resp Exam: Clear Bilaterally, Breath Sounds Equal, No Distress Cardiology CV Exam: Regular, Normal Sinus Rhythm Gastrointestinal/Abdomen GI Exam: Soft, Non-Tender, Bowel Sounds Present, Non-Distended Musculoskeletal MS Exam: Joints Intact, Normal Gait, Normal Tone Integumentary Skin Exam: Clear, Warm, Dry, Intact Extremeties Extremities Exam: No Edema Neurologic Neuro Exam: Alert, Awake, Oriented, Speech Clear, Moving All Extremities, No Focal Deficits Psychiatric Psych Exam: Appropriate Responses VTE Prophylaxis VTE Prophylaxis Meds: Heparin PUD Prophylasis PUD Prophylaxis: Protonix Assessment/Plan Assessment/Plan ASSESSMENT/PLAN 1. This is an 86-year male who came to the ER diagnosed with abdominal pain most likely secondary to acute pancreatitis.. The patient had high lipase. normal now The patient is on Morphine for pain. GI input noted. oncology input noted... have CT Finding most likely mass is Pseudocyst per oncology. CA19-9 is normal..abdominal pain resolved... d/w oncology Dr Prabhakar 2. Diabetes mellitus. The patient on a clear liquid diet. advance as tolerated. NovoLog low-dose sliding scale. Check blood sugar and H&H. 3. History of coronary artery disease. Continue home medication. 4. History of hyperlipidemia. Continue home medication. 5. History of vitamin D deficiency. Continue home medications. 6. Iron deficiency. Continue with iron supplement. 7. Constipation. Continue the home medication. 8. Nausea and vomiting. The patient is on Zofran. 9. DVT prophylaxis, heparin 5000 units subcutaneous twice a day. 10. GI prophylaxis Protonix 40 mg p.o. daily. ok to [place] per [place]ology . Patient wants to go home...ok to [facility] today. f/u with PCP/Oncology/GI 1 week. condition at discharge good Activity as tolerated. Diet Cardiac. Medicine see discharge medicine list in medical record. Discussed Condition with: Patient Sandip Pelaez MD September 24, 2016 08:30
[2016-09-24] MEDS: DOCUSATE SODIUM 100 MG CAP PO SCH (10:20)
[2016-09-24] MEDS: FAMOTIDINE 20 MG TAB PO SCH (10:20)
[2016-09-24] MEDS: FERROUS SULFATE 325 MG (65 MG ELEMENTAL IRON) TAB PO SCH (10:20)
[2016-09-24] MEDS: FUROSEMIDE 20 MG TAB PO SCH (10:20)
[2016-09-24] MEDS: METOPROLOL TARTRATE 25 MG TAB PO SCH (10:20)
[2016-09-24] MEDS: CHOLECALCIFEROL (VIT D3) 1000 UNIT TAB PO SCH (10:20)
[2016-09-24] MEDS: ASPIRIN 81 MG CHEW TAB CHEW SCH (10:20)
[2016-09-24] MEDS: SODIUM CHLORIDE 0.9% FLUSH 10 ML FLUSH IV FLUSH SCH (10:21)
[2016-09-24] MEDS: HEPARIN SODIUM - SQ 10,000 UNITS/ML VIAL SQ SCH (10:21)
== END 2016-09-24 10:56 | disposition home or self-care (01) | DRG 438 ==
LOC: PHED 01:51 → PHEDA 06:04 → PH3B 07:35
PROVIDERS: ADMIT Family Medicine; ATTEND Family Medicine
DX: K86.3 Pseudocyst of pancreas (principal); K85.90 Acute pancreatitis without necrosis or infection, unspecified; E11.9 Type 2 diabetes mellitus without complications; E61.1 Iron deficiency; I10 Essential (primary) hypertension; E78.5 Hyperlipidemia, unspecified; I25.10 Atherosclerotic heart disease of native coronary artery without angina pectoris; E78.1 Pure hyperglyceridemia; K21.9 Gastro-esophageal reflux disease without esophagitis; K59.00 Constipation, unspecified; M10.9 Gout, unspecified; N28.1 Cyst of kidney, acquired; N40.0 Benign prostatic hyperplasia without lower urinary tract symptoms; Z85.07 Personal history of malignant neoplasm of pancreas; Z87.891 Personal history of nicotine dependence; Z90.411 Acquired partial absence of pancreas; Z90.81 Acquired absence of spleen; Z92.21 Personal history of antineoplastic chemotherapy
CPT/HCPCS: 74177; 80048; 80053; 82378; 83605; 83690; 85025; 86301; 96361; 96372; 96374; 96375; C9113; J0500; J1644; J2270; J2405; J7030; J7040; Q9963; Q9967

== ENCOUNTER → 2017-03-01 | Outpatient (CLI) | payer MEDICARE, OTHER ==
[~2017-03-01] MED LIST changes: +ALFU10TA2 PO; -ASPI81 PO; +ASPI81CH7 CHEW; +COQ1200C PO; +CREO3000 PO; -DIAB1.25 PO; +DOCU100C PO; +FERR1TAB58 PO; +FINA5TAB2 PO; +FISH1000 PO; -FISHCAP4 PO; +FURO20TA PO; -GLUCTAB PO; +ISOS30TA3 PO; +LANTUS2P SQ; -METATAB; +METF1000 PO; +METO25TA3 PO; +NOVORP2 SQ; -PERC7.5T3 PO; -PRIN5TAB PO; -PROS5TAB2 PO; -RANI150 PO; +RANI300T PO; -SIMV20 PO; +SIMV20TA PO; -TAB-TAB PO; -TERA5CAP34 PO; +VITA10003 PO
[2017-03-01 15:11] LABS: HDL CHOLESTEROL 76.5 MG/DL (40.0-60.0)
== END ==
LOC: PLAB 10:08
PROVIDERS: ATTEND Internal Medicine Interventional Cardiology
DX: E78.2 Mixed hyperlipidemia (principal)
CPT/HCPCS: 36415; 80061

== ENCOUNTER → 2017-09-19 | Outpatient (CLI) | payer MEDICARE, OTHER ==
[~2017-09-19] MED LIST changes: -DOCU100C PO; +DOCU100C15 PO
[2017-09-19 10:50] LABS: ALBUMIN 3.5 GM/DL (3.4-5.0)
[2017-09-19 10:56] LABS: CHOLESTEROL/ HDL RATIO 2.12 RATIO; DIRECT BILIRUBIN ADULT 0.1 MG/DL (0.0-0.2); HDL CHOLESTEROL 52.8 MG/DL (40.0-60.0); INDIRECT BILIRUBIN 0.4 MG/DL (0.0-0.8); TOTAL BILIRUBIN ADULT 0.5 MG/DL (0.2-1.0); TOTAL PROTEIN 6.9 GM/DL (6.4-8.2)
== END ==
LOC: PLAB 07:32
PROVIDERS: ATTEND Internal Medicine Interventional Cardiology
DX: E78.00 Pure hypercholesterolemia, unspecified (principal); Z79.899 Other long term (current) drug therapy
CPT/HCPCS: 36415; 80061; 80076; 82550